=== PATIENT | male | born 1980 | race Caucasian/White ===

== ENCOUNTER 2017-05-17 00:15 | Emergency (ER) | payer MEDICAID ==
[~2017-05-17] VITALS: Ht 172.7 cm; Wt 50.0 kg
[2017-05-17] MEDS ORDERED: SODIUM CHLORIDE 0.9% 1,000ML IVBOLUS ONE (00:30)
[2017-05-17] MEDS ORDERED: LABETALOL 5MG/ML, 20ML IVPush ONE (00:30)
[2017-05-17] MEDS ORDERED: LABETALOL 5MG/ML, 20ML ONE (00:44)
[2017-05-17 00:47] LABS: HEMATOCRIT 49.7 % (39.2-51.8); HEMOGLOBIN 16.7 g/dL (13.7-18.0); WHITE BLOOD COUNT 9.7 x10^3/uL (3.4-10)
[2017-05-17] MEDS ORDERED: LORazepam 2 MG/ML, 1ML ONE (00:49)
[2017-05-17 01:00] LABS: ASPARTATE AMINO TRANSFERASE 27 U/L (15-37); BLOOD UREA NITROGEN 14 mg/dL (7-18)
[2017-05-17] MEDS ORDERED: LORazepam 2 MG/ML, 1ML IVPush ONE (01:00)
[2017-05-17] MEDS ORDERED: hydrALAzine 20 MG/ML, 1ML ONE (01:46)
[2017-05-17] MEDS ORDERED: hydrALAzine 20 MG/ML, 1ML IV ONE (02:00)
[2017-05-17 02:20] LABS: PATH.CAST-FLAG NOT PRESENT; SPERM-FLAG NOT PRESENT; SRC-FLAG NOT PRESENT; XTAL-FLAG NOT PRESENT; YLC-FLAG NOT PRESENT
[2017-05-17] MEDS ORDERED: CEFTRIAXONE PMX 1GM/50ML 50 ML IV ONE (02:30)
[2017-05-17] MEDS ORDERED: CEFTRIAXONE PMX 1GM/50ML 50 ML ONE (02:45)
[2017-05-17 04:08] VITALS: BP 99/53
== END 2017-05-17 04:12 | disposition home or self-care (01) ==
LOC: ED 02:13
DX: N39.0 Urinary tract infection, site not specified (principal); I10 Essential (primary) hypertension; G82.50 Quadriplegia, unspecified; L89.159 Pressure ulcer of sacral region, unspecified stage
CPT/HCPCS: 36415; 74020; 80053; 81001; 85025; 87086; 96361; 96365; 96375; 99285; J0360; J0696; J2060; J7030